=== PATIENT | male | born 1970 | race Caucasian/White ===

== ENCOUNTER → 2017-06-05 | Outpatient (CLI) | payer BC | LOC: COL.RAD 07:44 | DX: R11.2 Nausea with vomiting, unspecified (principal) ==

== ENCOUNTER 2022-12-13 10:29 | Outpatient (CLI) | payer MEDICARE, MEDICAID ==
[~2022-12-13] VITALS: Ht 182.9 cm; Wt 128.2 kg
[~2022-12-13 10:29] MED LIST: PROAIR HFA0.09 MG/AC IH; SINGULAIR 110 MG/TAB PO; TRELEGY ELLIPT1 EAC1 IH; XOLAIR150 MG/1 M SQ
[2022-12-13] MEDS ORDERED: SINGULAIR 110 MG/TAB PO (10:40)
[2022-12-13 11:32] VITALS: BP 135/91; PULSE 68; TEMP 97.4
== END 2022-12-13 11:35 | disposition home or self-care (01) ==
LOC: EUO 10:29
DX: J45.50 Severe persistent asthma, uncomplicated (principal)
CPT/HCPCS: J2357

== ENCOUNTER 2023-02-07 14:03 | Outpatient (CLI) | payer MEDICARE, MEDICAID ==
[~2023-02-07] VITALS: Ht 182.9 cm; Wt 126.9 kg
[2023-02-07 14:22] VITALS: BP 131/79; PULSE 64; TEMP 98.5
--- NOTE | 2023-02-07 15:16 | NUR ---
Pt tolerated xolair injection well. he ambulated independently to and from [facility]. Pt was given an appointment card with his next appointment listed. Pt was free from concerns and complaints at time of discharge.
== END 2023-02-07 15:10 | disposition home or self-care (01) ==
LOC: EUO 14:03
DX: J45.50 Severe persistent asthma, uncomplicated (principal)
CPT/HCPCS: J2357

== ENCOUNTER 2023-06-17 16:13 | Outpatient (CLI) | payer MEDICARE, MEDICAID ==
[~2023-06-17] VITALS: Ht 182.9 cm; Wt 133.3 kg
[2023-06-17] MEDS ORDERED: ALBUTEROL SULFAT3 M3 (16:23)
[2023-06-17 16:24] VITALS: BP 168/103; PULSE 90; TEMP 98.7
--- NOTE | 2023-06-17 16:37 | NUR ---
Nurse heard pt mention to someone over the phone they were not feeling well and wouldn't be able to drive the long distance. Nurse asked pt if they were okay. Pt stated, "my asthma is just acting up. I know better to drive the [address] I am going to stay at a motel which is only 8 minutes away." Nurse asked the pt if they would rather go to the ER to be seen if their asthma is so bad. Pt denied the offer of the ER and told staff, "I will be fine as soon as I get to the motel and can lay down and relax." After getting their shots pt got up and exited the unit with a steady gait.
== END 2023-06-17 16:37 | disposition home or self-care (01) ==
LOC: EUO 16:13
DX: J45.50 Severe persistent asthma, uncomplicated (principal)
CPT/HCPCS: J2357

== ENCOUNTER 2023-07-17 15:25 | Outpatient (CLI) | payer MEDICARE, MEDICAID ==
[~2023-07-17] VITALS: Ht 182.9 cm; Wt 130.5 kg
[2023-07-17 15:12] VITALS: BP 137/95; PULSE 81; TEMP 98.4
[~2023-07-17 15:25] MED LIST changes: +ALBUTEROL SULFAT3 M3; +ALBUTEROL0.83 MG/ML IH
--- NOTE | 2023-07-17 15:40 | NUR ---
Pt tolerated xolair without issue. He exits dept with steady gait.
== END 2023-07-17 15:40 | disposition home or self-care (01) ==
LOC: EUO 15:25
DX: J45.50 Severe persistent asthma, uncomplicated (principal)
CPT/HCPCS: J2357

== ENCOUNTER 2023-10-15 13:52 | Outpatient (CLI) | payer MEDICARE, MEDICAID ==
[~2023-10-15] VITALS: Ht 182.9 cm; Wt 132.7 kg
[2023-10-15 14:08] VITALS: BP 140/83; PULSE 92; TEMP 97.9
[2023-10-15] MEDS ORDERED: Omalizumab 150 MG/1 ML SYRINGE SQ SCH (14:30)
== END 2023-10-15 14:30 | disposition home or self-care (01) ==
LOC: EUO 13:52
DX: J45.50 Severe persistent asthma, uncomplicated (principal)
CPT/HCPCS: J2357

== ENCOUNTER 2024-05-15 14:59 | Outpatient (CLI) | payer MEDICARE, MEDICAID ==
[~2024-05-15] VITALS: Ht 182.9 cm; Wt 134.0 kg
[~2024-05-15 14:59] MED LIST changes: +K-TAB10 PO; +LASIX 20MG TABL20 MG PO; +NORVASC 5MG5 MG/TAB PO; +PRINIVIL5 MG PO
[2024-05-15] MEDS ORDERED: Omalizumab 150 MG/1 ML SYRINGE SQ ONE (15:15)
[2024-05-15 15:30] VITALS: BP 114/74; PULSE 93; TEMP 97.9
== END 2024-05-15 15:35 | disposition home or self-care (01) ==
LOC: EUO 14:59
DX: J45.50 Severe persistent asthma, uncomplicated (principal); Z79.899 Other long term (current) drug therapy
CPT/HCPCS: J2357

== ENCOUNTER 2024-07-14 15:56 | Outpatient (CLI) | payer MEDICARE, MEDICAID ==
[~2024-07-14] VITALS: Ht 182.9 cm; Wt 136.2 kg
[2024-07-14 16:04] VITALS: BP 138/88; PULSE 66; TEMP 98.4
--- NOTE | 2024-07-14 16:17 | NUR ---
PT TOLERATED INJECTIONS WELL. VS REMAINED WITHIN NORMAL LIMITS. PT FREE FROM ACUTE CONCERNS AND COMPLAINTS. PT AMBULATED INDEPENDENTLY TO [facility] UPON DISCHARGE.
[2024-07-14] MEDS ORDERED: Omalizumab 150 MG/1 ML SYRINGE SQ SCH (16:30)
== END 2024-07-14 16:18 | disposition home or self-care (01) ==
LOC: EUO 15:56
DX: J45.50 Severe persistent asthma, uncomplicated (principal)
CPT/HCPCS: J2357